=== PATIENT | female | born 1940 | race Caucasian/White ===

== ENCOUNTER 2016-12-12 12:09 | Observation (INO) | payer MEDICARE, OTHER ==
[2016-12-05 12:29] LABS: BASOPHILS 0.2 %; BASOPHILS ABSOLUTE 0.01 10/3/uL (0.0-0.16); EOSINOPHILS 1.4 %; EOSINOPHILS ABSOLUTE 0.06 10/3/uL (0.0-0.53); HEMOGLOBIN 13.3 g/dL (12.0-16.0); IMMATURE GRANULOCYTES 0.2 %; IMMATURE GRANULOCYTES ABSOLUTE 0.01 10/3/uL (0.0-0.11); LYMPHOCYTES 12.5 %; LYMPHOCYTES ABSOLUTE 0.55 10/3/uL (0.67-4.30); MEAN CORPUS HGB CONC 33.3 g/dL (32.0-36.0); MEAN CORPUSCULAR HEMOGLOB 29.6 pg (26.0-34.0); MEAN CORPUSCULAR VOLUME 89.1 fL (80-100); MEAN PLATELET VOLUME 10.6 fL (9.2-13.0); MONOCYTES ABSOLUTE 0.31 10/3/uL (0.21-1.20); NEUTROPHILS 78.7 %; NEUTROPHILS ABSOLUTE 3.46 10/3/uL (2.02-8.40); RBC DISTRIBUTION WIDTH 14.3 % (12.0-16.0); RED CELL COUNT 4.49 10/6/uL (4.0-5.6); WHITE BLOOD CELLS 4.4 10/3/uL (4.5-10.5)
[2016-12-05 12:31] LABS: MANUAL DIFF NO %; PLATELET COUNT 40 10/3/uL (150-400)
[2016-12-05 12:38] LABS: BUN (BLOOD UREA NITROGEN) 19 MG/DL (6-23); CALCIUM, SERUM 9.3 MG/DL (8.5-10.4); CHLORIDE, SERUM 100 MMOL/L (96-112); CREATININE 0.99 MG/DL (0.55-1.02); GFR AFRICAN AMERICAN 64 ML/MIN (>=60); GFR NON AFRICAN AMERICAN 55 ML/MIN (>=60); POTASSIUM, SERUM 4.1 MMOL/L (3.5-5.3); SODIUM, SERUM 137 MMOL/L (135-148)
[2016-12-05 12:39] LABS: CO2 (CARBON DIOXIDE) 28 MMOL/L (24-34); GLUCOSE, SERUM 175 MG/DL (60-99)
[2016-12-05 13:11] LABS: RBC MORPHOLOGY NORM (NORMAL)
--- NOTE | ~2016-12-12 | OP ---
Record Of Operation [facility] [address] [place]. [address] NAME: RIO MCDERMOTT : 40 STATUS : ADM IN PAT#: [id number] AGE: 76 ADM/REG DATE : 12/12/16 MR#: [id number] REPORT SERV DATE: 12/13/16 DICTATED BY: ELIZABETH MARCUS DATE: 12/13/16 REPORT STATUS : Draft TRANSCRIBED BY: MODL DATE: 12/13/16 DATE OF PROCEDURE: 12/13/2016 ELECTROPHYSIOLOGY PROCEDURE NOTE TYPE OF PROCEDURE: Direct current cardioversion. INDICATIONS: Atypical atrial flutter, symptomatic heart rates approximately 100 beats per minute. DESCRIPTION OF PROCEDURE: The patient was taken to the cardiac short-stay unit in fasting, nonsedated state. R2 pads were placed in an anterior and posterior position. Following anesthesia with propofol, please see Anesthesia's note for further details, the patient underwent a direct current cardioversion at 200 joules. The patient did not initially have recovery of sinus node function and had a prolonged period of asystole. Chest compressions were started immediately. The patient underwent external pacing through the R2 pads that was successful at causing arterial perfusion. The patient was breathing spontaneously. Initially in the absence of the pacemaker, that is to say when we would shut the pacemaker off, the patient had at most a very slow junctional escape rhythm. She was administered 1 amp of epinephrine, which quickly resulted in sinus rhythm with some runs of nonsustained wide-complex tachycardia. Eventually as the epinephrine wore off, there was no further wide complex tachycardia. The patient had sinus rhythm interspersed with other atrial ectopic beats and this persisted, but she did maintain a sufficient rate between 60 and 70 beats per minute. The patient awoke from the anesthesia without any complications. Neurologically, she appears to be intact. She is able to converse with us, answers all questions appropriately, moves all of her extremities upon command. IMPRESSION: Cardioversion resulting in an asystolic episode with immediate use of chest compression, followed by external pacing, and eventually an epinephrine which restored sinus rhythm interspersed with other atrial ectopic rhythm. The patient recovered fully from this event and does not appear to have any neurologic manifestations. ZACHARY/MITCHELL Elizabeth Marcus M.D. / [id number] CC: Cecily Richards III, LISA M
--- NOTE | ~2016-12-12 | DS ---
Discharge Summary [facility] [address] [place]. [address] NAME: RIO MCDERMOTT : 40 STATUS : DIS Annette PAT#: [id number] AGE: 76 ADM/REG DATE : 12/12/16 MR#: [id number] REPORT SERV DATE: 12/15/16 DICTATED BY: CLINT MENDENHALL III DATE: 12/14/16 REPORT STATUS : Draft TRANSCRIBED BY: MODL DATE: 12/14/16 ADMISSION DATE: 12/12/2016 DISCHARGE DATE: 12/14/2016 DISCHARGE DIAGNOSES: 1. Left renal stone. 2. Arrhythmia. PROCEDURES: 1. Cystoureteroscopic stone fragmentation and removal. 2. Cardioversion. HISTORY OF PRESENT ILLNESS: The patient is a 76-year-old white female, who had a large stone in the left kidney. 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 She previously had a stone procedure done to fragment a sizable stone that I felt too risky for a percutaneous approach. She came in for removal of remaining fragments. PAST MEDICAL HISTORY: Includes coronary artery disease, carotid disease, diabetes and hyperlipidemia, pulmonary hypertension. She also has splenomegaly and the Granados syndrome. HOSPITAL COURSE: The patient was taken to the operating room. The surgical procedure was uneventful, however, she developed an abnormal rhythm in recovery room. She was seen by Yovana, who said it was a rhythm that needed to be cardioverted and was not strictly atrial fibrillation. This was done on the day prior to discharge. At the time of discharge, she was afebrile voiding comfortable and will be discharged home to see me in two-three weeks for stent removal. OB/MODL Clint Mendenhall III, M.D. / [id number] CC: Clint Mendenhall III, M.D.
--- NOTE | ~2016-12-12 | OP ---
Record Of Operation [facility] [address] [place]. [address] NAME: RIO MCDERMOTT : 40 STATUS : DIS Annette PAT#: [id number] AGE: 76 ADM/REG DATE : 12/12/16 MR#: [id number] REPORT SERV DATE: 12/19/16 DICTATED BY: CLINT MENDENHALL III DATE: 12/19/16 REPORT STATUS : Draft TRANSCRIBED BY: MODL DATE: 12/19/16 DATE OF PROCEDURE: 12/12/2016 PROCEDURES: Cystoscopy, left retrograde, left ureteroscopic stone fragmentation and removal with reinsertion of double-J stent. PREOPERATIVE DIAGNOSIS: Left renal calculus. POSTOPERATIVE DIAGNOSIS: Left renal calculus. ANESTHESIA: General. PROCEDURE: Following induction of adequate general anesthesia, the patient was placed in dorsal spine position, prepped and draped in sterile fashion. The urethra was noted to be normal. The stent was pulled through the meatus and a wire placed up to the renal pelvis. A rigid scope was used to evaluate the ureter. There were several small stones in the ureter, which were removed. A 36-cm 12-Turkmen sheath was passed to the UPJ. The scope was passed and several sizable stones were dusted with the laser. A number of fragments were removed. There was a lateral calyx that was quite hard to get to with the flexible scope. I could get the laser in, but I could not get the scope into the ostium of the infundibulum. At one point, I did have a basket on one of the stones, but it would not come through the ostium. I, therefore, dusted these stones. In the lower part of the kidney were number a fragments. We took out 9 or 10 fragments and dusted the remainder. At the end of the procedure, other than in the mediolateral calyx, there were stones of very small size that should pass. A stent was replaced with a coil in the bladder and a coil in the kidney. The bladder was drained and the procedure terminated. The patient tolerated the procedure well. OB/MODL Clint Mendenhall III, M.D. / [id number] CC: Cecily Richards III
--- NOTE | ~2016-12-12 | CN ---
Consultation Report [facility] [address] [place]. [address] NAME: RIO PHAM : 40 STATUS : ADM IN PAT#: [id number] AGE: 76 ADM/REG DATE : 12/12/16 MR#: [id number] REPORT SERV DATE: 12/12/16 DICTATED BY: ELIZABETH MARCUS DATE: 12/12/16 REPORT STATUS : Draft TRANSCRIBED BY: MODL DATE: 12/12/16 CARDIOLOGY CONSULTATION DATE OF CONSULTATION: REASON FOR CONSULTATION: Atrial dysrhythmia. HISTORY OF PRESENT ILLNESS: Ms. Pham is a pleasant patient who underwent a ureteral stent procedure by Dr. Clint Lemon today. In the postoperative phase, she suddenly developed atrial fibrillation and had rapid ventricular response. She was started on IV Cardizem and then seemed to convert to a more regular rhythm at approximately 90 beats per minute that seems to be most consistent with an atypical atrial flutter. The patient apparently has no previous history of atrial fibrillation or any other atrial dysrhythmias but does have a history of coronary disease, status post remote stent and myocardial infarction about 10 [address] ago[address] Phillip Bishop as her adult educator and visits him on a yearly basis and says that there has not been any issues regarding her heart. Specifically, she denies any arrhythmia issues, problems with chest pain or congestive heart failure symptoms. PAST MEDICAL HISTORY: Notable for: 1. History of renal stones. She underwent a similar ureteral stent procedure and stone extraction about a week ago. 2. History of coronary disease, status post stent placement 10 years ago. 3. History of stage IV nonalcoholic cirrhotic liver disease, for which she sees Dr. Eduardo. FAMILY HISTORY: Noncontributory. Negative for premature coronary artery disease. SOCIAL HISTORY: Negative for tobacco or alcohol. No illicit drug use. REVIEW OF SYSTEMS: As noted above. All other systems reviewed and negative. PHYSICAL EXAMINATION: GENERAL: She is in no acute distress. VITAL SIGNS: Blood pressure is 110/60, pulse is 92 and regular, and respirations 16. HEENT: No icterus. Good dentition. NECK: Supple. No masses or thyromegaly LUNGS: Breathing comfortably. No rales or wheezes. COR: Normal S1, S2. No S3 or S4. No murmurs, clicks, rubs. No JVD ABD: Soft, nondistended, nontender, no hepatosplenomegaly. EXT: No clubbing, cyanosis or edema. Peripheral pulses 2+/=bilaterally. SKIN: Warm and dry. No visible lesions. MS: Chest wall without deformity, no obvious clavicular fractures. NEURO/PSYCH: Oriented X3. No anxiety or depression. Consultation Report [facility] [address] [place]. [address] NAME: RIO PHAM : 40 STATUS : ADM IN PAT#: [id number] AGE: 76 ADM/REG DATE : 12/12/16 MR#: [id number] REPORT SERV DATE: 12/12/16 DICTATED BY: ELIZABETH MARCUS DATE: 12/12/16 REPORT STATUS : Draft TRANSCRIBED BY: MITCHELL DATE: 12/12/16 EKG shows a regular rhythm, 92 beats per minute. There is a very fine wavy baseline suggestive that there may be an underlying atypical atrial flutter. The morphology is not consistent with sinus rhythm. No evidence for ischemia, infarction, or chamber hypertrophy. LABORATORY VALUES: Unremarkable. IMPRESSION: The patient with a history of coronary disease, status post stent, this is remote and has been stable. She has no history of atrial dysrhythmia. She presents postop with what at first appeared to be atrial fibrillation and now appears to be a regular rhythm at a rate of 92 beats per minute. The morphology does not suggest sinus rhythm and is more consistent with an atypical atrial flutter, although I cannot clearly see definitive flutter waves running through the baseline. Of note, the patient's preoperative EKG showed a sinus bradycardia with heart rates in the 50s. It would seem unlikely that her heart rates would be in the 90s now. She is not in any discomfort. Complicating her situation is the fact that she has stage IV nonalcoholic cirrhotic liver disease. The question is whether she can receive anticoagulation because of the liver disease. The patient sees Dr. Eduardo from Gastroenterology, and I will try to contact him tomorrow to see if we can discuss this subject. The other issue is that she just underwent ureteral stent placement by Dr. Lemon and may not be a candidate for anticoagulation at the present time due to this issue. For now, we will continue rate control. She is on IV Cardizem. I am going to start p.o. Cardizem and try to transition her to p.o. Cardizem only. We will discuss anticoagulation as mentioned with her hot metal charger and with her urologist. Of note, if we decided to use anticoagulation question whether we would want to use an agent that is less dependent upon hepatic clearance such as Pradaxa or Xarelto rather than Eliquis, which is more dependent on hepatic clearance. ZACHARY/MITCHELL Elizabeth Marcus M.D. / [id number]
[~2016-12-12 12:09] MED LIST: ACET500CAP PO; ASAB PO; CIP5 PO; CONSTULOSE PO; EYE INJECTIONS IJ; GLUCOPHAGE1000 MG; HUMULIN SC; INSNOV7030 SC; INSNOVN SC; L40 PO; L80 PO; LEVAQUIN5T PO; MAGOX4 PO; REFRESH OPH SO0.3 ML OPH; SPIRO50 PO; TEARS PURE OPH
[2016-12-12 14:02] LABS: INTERNATIONAL NORMAL RATI 1.2 UNITS (-); PARTIAL THROMBO TIME 30.9 SEC (22.5-37.2); PROTIME (NOT ORD) 15.5 SEC (12.0-14.5)
[2016-12-13 04:09] LABS: BASOPHILS 0 %; EOSINOPHILS 0 %; HEMATOCRIT 37.2 % (36.0-48.0); HEMOGLOBIN 12.5 g/dL (12.0-16.0); IMMATURE GRANULOCYTES 0.3 %; IMMATURE GRANULOCYTES ABSOLUTE 0.01 10/3/uL (0.0-0.11); LYMPHOCYTES 7.1 %; LYMPHOCYTES ABSOLUTE 0.22 10/3/uL (0.67-4.30); MEAN CORPUS HGB CONC 33.6 g/dL (32.0-36.0); MEAN CORPUSCULAR HEMOGLOB 29.5 pg (26.0-34.0); MEAN CORPUSCULAR VOLUME 87.7 fL (80-100); MONOCYTES 6.8 %; MONOCYTES ABSOLUTE 0.21 10/3/uL (0.21-1.20); NEUTROPHILS 85.8 %; NEUTROPHILS ABSOLUTE 2.66 10/3/uL (2.02-8.40); RBC DISTRIBUTION WIDTH 14.3 % (12.0-16.0); RED CELL COUNT 4.24 10/6/uL (4.0-5.6); WHITE BLOOD CELLS 3.1 10/3/uL (4.5-10.5)
[2016-12-13 04:10] LABS: MANUAL DIFF NO %; PLATELET COUNT 30 10/3/uL (150-400)
[2016-12-13 04:35] LABS: OVALOCYTES 1+ (3-10/OIF) (0-2/OIF); PLATELET ESTIMATE DEC (ADEQUATE); TEARDROP SHAPED RBCS FEW (3-10/OIF)
[2016-12-13 06:54] LABS: CHLORIDE, SERUM 101 MMOL/L (96-112); GFR AFRICAN AMERICAN 51 ML/MIN (>=60); GFR NON AFRICAN AMERICAN 44 ML/MIN (>=60); POTASSIUM, SERUM 4.9 MMOL/L (3.5-5.3); SODIUM, SERUM 135 MMOL/L (135-148)
[2016-12-13 07:00] LABS: BUN (BLOOD UREA NITROGEN) 24 MG/DL (6-23); CO2 (CARBON DIOXIDE) 21 MMOL/L (24-34); GLUCOSE, SERUM 335 MG/DL (60-99)
[2016-12-18 09:44] LABS: STONE COMPOSITION TWO DNR (())
== END 2016-12-14 09:34 | disposition home or self-care (01) ==
LOC: SDC 12:09 → SDC/OF 18:07 → 2SO 19:00 → SSU1 12-13 13:05 → SSU2 12-13 14:36
PROVIDERS: Urology
PROC: 5A12012 Performance of Cardiac Output, Single, Manual (ICD-10-PCS; 2016-12-12)
PROC: 0TC78ZZ Extirpation of Matter from Left Ureter, Via Natural or Artificial Opening Endoscopic (ICD-10-PCS; 2016-12-12)
PROC: 0T778DZ Dilation of Left Ureter with Intraluminal Device, Via Natural or Artificial Opening Endoscopic (ICD-10-PCS; 2016-12-12)
PROC: 5A2204Z Restoration of Cardiac Rhythm, Single (ICD-10-PCS; principal; 2016-12-12 14:45)
DX: I48.4 Atypical atrial flutter (principal); N20.0 Calculus of kidney; I25.10 Atherosclerotic heart disease of native coronary artery without angina pectoris; K74.60 Unspecified cirrhosis of liver; M19.90 Unspecified osteoarthritis, unspecified site; E11.9 Type 2 diabetes mellitus without complications; E78.5 Hyperlipidemia, unspecified; R16.1 Splenomegaly, not elsewhere classified; I27.2 Other secondary pulmonary hypertension; Z79.4 Long term (current) use of insulin; Z87.891 Personal history of nicotine dependence; Z88.8 Allergy status to other drugs, medicaments and biological substances; Z79.2 Long term (current) use of antibiotics; Z79.899 Other long term (current) drug therapy
CPT/HCPCS: 36415; 74420; 80048; 82365; 82962; 85025; 85610; 85730; 86900; 86901; 92950; 92960; 93005; A9270-GY; C1758; C1769; C1894; C2617; G0378; J2250; J2370; J2405; J2710; J3010; P9035; Q9967